=== PATIENT | male | born 1945 | race Caucasian/White ===

== ENCOUNTER 2018-07-07 07:32 | Day surgery (SDC) | payer OTHER ==
[~2018-07-07] VITALS: Ht 167.6 cm; Wt 116.1 kg
[~2018-07-07 07:32] MED LIST: ASPI-1 PO; ATEN100T PO; ATOR1TAB21 PO; BIMA01SOL OU; D 101000 PO; FISH1000 PO; GLUC4GMTAB PO; LANTINJ4 SC; MESA50SU PR; NOVOINJ3 SC; SPIR50TA4 PO; SYNT88TA2 PO; TRUL0.5I SC; VALS1TAB68 PO
[2018-07-07] MEDS ORDERED: PROPOFOL 200 MG/20 ML VIAL As Ordered ONE ×3 (09:19→09:50)
--- NOTE | 2018-07-07 10:01 | ROOR ---
Patient Name: Kalia Neville Procedure Date: 07/07/2018 9:16 AM Date of : 1945 Age: 73 Room: [facility] Gender: Male Note Status: Finalized Procedure: Colonoscopy Indications: Personal history of Crohn's disease, Positive fecal immunochemical test Providers: Eduardo Barton Jr, MD Referring MD: Mary HOLLOWAY MD Requesting Provider: Medicines: Propofol per Anesthesia Complications: No immediate complications. Procedure: Pre-Anesthesia Assessment: - Prior to the procedure, a History and Physical was performed, and patient medications and allergies were reviewed. The patient is competent. The risks and benefits of the procedure and the sedation options and risks were discussed with the patient. All questions were answered and informed consent was obtained. Patient identification and proposed procedure were verified by the physician and the nurse in the pre-procedure area and in the procedure room. Mental Status Examination: alert and oriented. Airway Examination: normal oropharyngeal airway and neck mobility. Respiratory Examination: clear to auscultation. CV Examination: normal. ASA Grade Assessment: II - A patient with mild systemic disease. After reviewing the risks and benefits, the patient was deemed in satisfactory condition to undergo the procedure. The anesthesia plan was to use moderate sedation / analgesia (conscious sedation). Immediately prior to administration of medications, the patient was re-assessed for adequacy to receive sedatives. The heart rate, respiratory rate, oxygen saturations, blood pressure, adequacy of pulmonary ventilation, and response to care were monitored throughout the procedure. The physical status of the patient was re-assessed after the procedure. The Colonoscope was introduced through the anus and advanced to the terminal ileum. The colonoscopy was performed without difficulty. The patient tolerated the procedure well. The quality of the bowel preparation was adequate. Findings: The rectum, descending colon, transverse colon, ascending colon, cecum and appendiceal orifice appeared normal. Biopsies were taken with a cold forceps for histology. The distal ileum appeared normal. Biopsies were taken with a cold forceps for histology. A medium polyp was found in the sigmoid colon. The polyp was pedunculated. The polyp was removed with a hot snare. Resection and retrieval were complete. A small polyp was found in the sigmoid colon. The polyp was semi-pedunculated. The polyp was removed with a hot snare. Resection and retrieval were complete. A medium polyp was found in the recto-sigmoid colon. The polyp was pedunculated. The polyp was removed with a hot snare. Resection and retrieval were complete. Impression: - The rectum, descending colon, transverse colon, ascending colon, cecum and appendiceal orifice are normal. Biopsied. - The examined portion of the ileum was normal. Biopsied. - One medium polyp in the sigmoid colon, removed with a hot snare. Resected and retrieved. - One small polyp in the sigmoid colon, removed with a hot snare. Resected and retrieved. - One medium polyp at the recto-sigmoid colon, removed with a hot snare. Resected and retrieved. Recommendation: - Repeat colonoscopy in 3 - 5 years for surveillance based on pathology results. Eduardo Barton MD Eduardo Barton Jr, MD 07/07/2018 10:01:32 AM Electronically signed by Eduardo Barton Jr, MD Number of Addenda: 0 Note Initiated On: 07/07/2018 9:16 AM Estimated Blood Loss: Estimated blood loss: none.
[2018-07-07 10:35] VITALS: BP 154/76
== END 2018-07-07 10:37 | disposition home or self-care (01) ==
LOC: M OPP 07:32
PROVIDERS: ATTEND Surgery
DX: K63.5 Polyp of colon (principal); R19.5 Other fecal abnormalities; Z87.19 Personal history of other diseases of the digestive system

== ENCOUNTER → 2020-05-01 | Outpatient (REF) | payer MEDICARE, OTHER | LOC: M LAB REF 19:02 | PROVIDERS: ATTEND Dermatology | DX: L82.1 Other seborrheic keratosis (principal) ==

== ENCOUNTER → 2020-05-22 | Outpatient (REF) | payer MEDICARE, OTHER ==
[~2020-05-22] MED LIST changes: +DEXT4TAB5 PO; -GLUC4GMTAB PO
== END ==
LOC: M LAB REF 18:43
PROVIDERS: ATTEND Dermatology
DX: D04.62 Carcinoma in situ of skin of left upper limb, including shoulder (principal); D23.62 Other benign neoplasm of skin of left upper limb, including shoulder

== ENCOUNTER → 2020-12-25 | Outpatient (REF) | payer OTHER ==
[~2020-12-25] MED LIST changes: -DEXT4TAB5 PO; +GLUC4GMTAB PO
== END ==
LOC: M LAB REF 18:13
PROVIDERS: ATTEND Internal Medicine
DX: E13.622 Other specified diabetes mellitus with other skin ulcer (principal)

== ENCOUNTER → 2020-12-25 | Outpatient (CLI) | payer OTHER ==
--- NOTE | 2020-12-25 15:16 | REP ---
INDICATION: DIABETIC WOUND INFECTION AFTER PUNCTURE WOUND LEFT BIG TOE COMPARISON: None. TECHNIQUE: AP, lateral, bilateral oblique views left foot. 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 Osseous structures demonstrate degenerative changes primarily involving the mid/hindfoot and 1st toe which includes subchondral sclerosis, joint space narrowing, marginal spurring and hallux valgus deformity. There is acute soft tissue swelling surrounding the 1st toe with subcutaneous emphysema and underlying ulceration. IMPRESSION: Soft tissue swelling with cellulitis and ulceration suggested. Osseous structures demonstrate degenerative changes without radiographic findings to suggest acute osteomyelitis. <Electronically signed by Bart Souza > 12/25/20 [id number]
== END ==
LOC: M WUC 14:28
PROVIDERS: ATTEND Internal Medicine
DX: S91.132A Puncture wound without foreign body of left great toe without damage to nail, initial encounter (principal); X58.XXXA Exposure to other specified factors, initial encounter; Y92.9 Unspecified place or not applicable; Y93.9 Activity, unspecified; Y99.9 Unspecified external cause status; Z89.422 Acquired absence of other left toe(s); E13.622 Other specified diabetes mellitus with other skin ulcer

== ENCOUNTER 2021-01-17 15:22 | Outpatient (CLI) | payer OTHER ==
[~2021-01-17] VITALS: Ht 170.2 cm; Wt 95.0 kg
[~2021-01-17 15:22] MED LIST changes: +ALBUTEROL 90 MCG/ACT 8GM HFA INHALER INH PRN; +ALBUTEROL SULFATE 2.5 MG/0.5 ML INH NEB SOLN INH PRN; +EPINEPHrine INJ 1 MG/ML 1ML AMP IM PRN; +NS 1,000 ML IV SCH; +diphenhydrAMINE 50MG/ML VIAL (J1200) IV PRN; +methylPREDNISolone 125MG 2ML VIAL IV PRN
[2021-01-17] MEDS ORDERED: ACETAMINOPHEN TAB 650MG DOSE (2X325MG) PO ONE (17:15)
[2021-01-17] MEDS ORDERED: diphenhydrAMINE 25MG CAP PO ONE (17:15)
[2021-01-17 17:23] VITALS: BP 173/78
[2021-01-17 17:53] VITALS: BP 177/77
[2021-01-17] MEDS ORDERED: CASIRIVIMAB (REGN10933) 600 MG, IMDEVIMAB (REGN10987) 600 MG in NS 250 ML IV ONE (18:00)
[2021-01-17 18:23] VITALS: BP 168/75
[2021-01-17 19:21] VITALS: BP 166/72
== END 2021-01-17 19:22 | disposition home or self-care (01) ==
LOC: M OPCLI4PR 15:22
PROVIDERS: ATTEND Internal Medicine
DX: U07.1 COVID-19 (principal); Z88.8 Allergy status to other drugs, medicaments and biological substances

== ENCOUNTER → 2021-02-03 | Outpatient (CLI) | payer OTHER ==
[~2021-02-03] MED LIST changes: -ALBUTEROL 90 MCG/ACT 8GM HFA INHALER INH PRN; -ALBUTEROL SULFATE 2.5 MG/0.5 ML INH NEB SOLN INH PRN; -EPINEPHrine INJ 1 MG/ML 1ML AMP IM PRN; -NS 1,000 ML IV SCH; -diphenhydrAMINE 50MG/ML VIAL (J1200) IV PRN; -methylPREDNISolone 125MG 2ML VIAL IV PRN
--- NOTE | 2021-02-03 12:26 | REP ---
INDICATION: R/O OSTEOMYELITIS COMPARISON: 12/25/2020 TECHNIQUE: AP, lateral, bilateral oblique views left foot. 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 The osseous structures are intact and stable again demonstrating degenerative changes and hallux valgus deformity without periosteal reaction or new abnormal sclerotic changes. Oblique views suggest ulceration adjacent to the 1st MTP joint. No foreign body. IMPRESSION: Stable degenerative changes and soft tissue ulceration suggested. No evidence for osteomyelitis by radiographic evaluation. <Electronically signed by Bart Souza > 02/03/21 [id number]
[2021-02-03 17:48] LABS: BASOPHILS 1 % (0-1); EOSINOPHILS 2 % (0-3); LYMPHOCYTES 8 % (16-44); METAMYELOCYTES 1 % (0-0); MONOCYTES 12 % (0-5); MYELOCYTES 1 % (0-0); NEUTROPHILS 75 % (28-66); PLATELET ESTIMATE NORMAL (NORMAL)
[2021-02-03 17:49] LABS: ANISOCYTOSIS 1+
== END ==
LOC: M WUC 11:28
PROVIDERS: ATTEND Internal Medicine
DX: D72.829 Elevated white blood cell count, unspecified (principal); S91.132A Puncture wound without foreign body of left great toe without damage to nail, initial encounter; X58.XXXA Exposure to other specified factors, initial encounter; Y92.9 Unspecified place or not applicable

== ENCOUNTER → 2021-05-29 | Outpatient (REF) | payer OTHER | LOC: M LAB REF 16:10 | PROVIDERS: ATTEND Internal Medicine | DX: I12.9 Hypertensive chronic kidney disease with stage 1 through stage 4 chronic kidney disease, or unspecified chronic kidney disease (principal) ==

== ENCOUNTER → 2021-07-15 | Outpatient (REF) | payer OTHER ==
[2021-07-15 17:40] LABS: BASO # 0.1 10^3/uL (0.0-0.2); BASO % 0.5 % (0.0-1.0); EOS # 0.3 10^3/uL (0.0-0.5); EOS % 2.7 % (0.0-3.0); HEMATOCRIT 38.3 % (42.0-52.0); HEMOGLOBIN 12.4 g/dl (13.5-17.5); LYMPH # 0.9 10^3/uL (1.5-5.0); MEAN CORPUSCULAR HEMOGLOBIN 29.7 pg (27.0-33.0); MEAN CORPUSCULAR HGB CONC 32.4 g/dl (32.0-36.5); MEAN CORPUSCULAR VOLUME 91.8 fl (80.0-96.0); MONO # 0.6 10^3/uL (0.0-0.8); MONO % 6.2 % (2.0-8.0); NEUTROPHILS # 7.3 10^3/uL (1.5-8.5); NEUTROPHILS % 79.1 % (36.0-66.0); PLATELET COUNT, AUTOMATED 122 10^3/uL (150-450); RED BLOOD COUNT 4.17 10^6/uL (4.30-6.10); WHITE BLOOD COUNT 9.3 10^3/uL (4.0-10.0)
[2021-07-15 18:13] LABS: ALBUMIN 3.2 GM/DL (3.2-5.2); C REACTIVE PROTEIN QUANTITATIV 0.3 MG/DL (0.00-0.30); CALCIUM LEVEL 9.1 MG/DL (8.8-10.2); CREATININE FOR GFR 1.51 MG/DL (0.70-1.30); GLOMERULAR FILTRATION RATE 47.8 (>42); POTASSIUM SERUM 5.2 MEQ/L (3.5-5.1); PREALBUMIN 21.7 MG/DL (20.0-40.0); TOTAL PROTEIN 6.7 GM/DL (6.4-8.2)
[2021-07-15 18:21] LABS: ERYTHROCYTE SEDIMENTATION RATE 2 mm/hr (0-20)
== END ==
LOC: M LAB REF 17:05
PROVIDERS: ATTEND Surgery
DX: L97.525 Non-pressure chronic ulcer of other part of left foot with muscle involvement without evidence of necrosis (principal)

== ENCOUNTER → 2021-07-22 | Outpatient (REF) | payer OTHER ==
[2021-07-22 14:05] LABS: BASO # 0.1 10^3/uL (0.0-0.2); BASO % 0.6 % (0.0-1.0); EOS # 0.2 10^3/uL (0.0-0.5); EOS % 2.4 % (0.0-3.0); HEMATOCRIT 36.8 % (42.0-52.0); HEMOGLOBIN 12.1 g/dl (13.5-17.5); LYMPH # 0.8 10^3/uL (1.5-5.0); LYMPH % 8.7 % (24.0-44.0); MEAN CORPUSCULAR HGB CONC 32.9 g/dl (32.0-36.5); MEAN CORPUSCULAR VOLUME 91.3 fl (80.0-96.0); MONO # 0.4 10^3/uL (0.0-0.8); MONO % 4.6 % (2.0-8.0); NEUTROPHILS # 7.1 10^3/uL (1.5-8.5); NEUTROPHILS % 82.4 % (36.0-66.0); PLATELET COUNT, AUTOMATED 108 10^3/uL (150-450); RED BLOOD COUNT 4.03 10^6/uL (4.30-6.10); WHITE BLOOD COUNT 8.6 10^3/uL (4.0-10.0)
[2021-07-22 14:32] LABS: ERYTHROCYTE SEDIMENTATION RATE 36 mm/hr (0-20)
[2021-07-22 14:39] LABS: ALBUMIN 3.1 GM/DL (3.2-5.2); BILIRUBIN,TOTAL 0.7 MG/DL (0.2-1.0); C REACTIVE PROTEIN QUANTITATIV 0.3 MG/DL (0.00-0.30); CALCIUM LEVEL 9.2 MG/DL (8.8-10.2); CREATININE FOR GFR 1.61 MG/DL (0.70-1.30); GLOMERULAR FILTRATION RATE 44.4 (>42); POTASSIUM SERUM 4.8 MEQ/L (3.5-5.1); PREALBUMIN 17.6 MG/DL (20.0-40.0); TOTAL PROTEIN 6.7 GM/DL (6.4-8.2)
== END ==
LOC: M LAB REF 13:21
PROVIDERS: ATTEND Surgery
DX: L97.525 Non-pressure chronic ulcer of other part of left foot with muscle involvement without evidence of necrosis (principal); E11.621 Type 2 diabetes mellitus with foot ulcer; E11.59 Type 2 diabetes mellitus with other circulatory complications; I73.9 Peripheral vascular disease, unspecified; H25.9 Unspecified age-related cataract; H91.90 Unspecified hearing loss, unspecified ear; I10 Essential (primary) hypertension; K50.919 Crohn's disease, unspecified, with unspecified complications; E66.01 Morbid (severe) obesity due to excess calories

== ENCOUNTER → 2021-08-13 | Outpatient (REF) | payer MEDICARE, OTHER ==
[~2021-08-13] MED LIST changes: +AMLO10TA PO; +BUPR150T12 PO; +FLOM0.4C39 PO; +INSUH10VL SQ; +LEVO125T4 PO; +LISI40TA4 PO; +PENT500C PO; +SEMA1PEN2 SQ; +VITA100093 PO
[2021-08-13 11:56] LABS: BASO # 0.1 10^3/uL (0.0-0.2); BASO % 0.5 % (0.0-1.0); EOS # 0.4 10^3/uL (0.0-0.5); EOS % 3.4 % (0.0-3.0); HEMATOCRIT 37.4 % (42.0-52.0); HEMOGLOBIN 12.2 g/dl (13.5-17.5); LYMPH # 0.8 10^3/uL (1.5-5.0); LYMPH % 7.4 % (24.0-44.0); MEAN CORPUSCULAR HEMOGLOBIN 30.7 pg (27.0-33.0); MEAN CORPUSCULAR HGB CONC 32.6 g/dl (32.0-36.5); MEAN CORPUSCULAR VOLUME 94.2 fl (80.0-96.0); MONO # 0.7 10^3/uL (0.0-0.8); MONO % 6.1 % (2.0-8.0); NEUTROPHILS # 8.9 10^3/uL (1.5-8.5); NEUTROPHILS % 80.7 % (36.0-66.0); PLATELET COUNT, AUTOMATED 134 10^3/uL (150-450); RED BLOOD COUNT 3.97 10^6/uL (4.30-6.10)
[2021-08-13 12:31] LABS: ALBUMIN 3.2 GM/DL (3.2-5.2); BILIRUBIN,TOTAL 1.2 MG/DL (0.2-1.0); C REACTIVE PROTEIN QUANTITATIV 0.3 MG/DL (0.00-0.30); CALCIUM LEVEL 8.7 MG/DL (8.8-10.2); CREATININE FOR GFR 1.92 MG/DL (0.70-1.30); ERYTHROCYTE SEDIMENTATION RATE 34 mm/hr (0-20); GLOMERULAR FILTRATION RATE 36.2 (>42); POTASSIUM SERUM 5.7 MEQ/L (3.5-5.1); PREALBUMIN 23.5 MG/DL (20.0-40.0)
== END ==
LOC: M LAB REF 11:23
DX: L97.525 Non-pressure chronic ulcer of other part of left foot with muscle involvement without evidence of necrosis (principal)

== ENCOUNTER → 2021-08-15 | Outpatient (CLI) | payer OTHER ==
[~2021-08-15] MED LIST changes: -BUPR150T12 PO; -FLOM0.4C39 PO; -INSUH10VL SQ; -LEVO125T4 PO; -SEMA1PEN2 SQ; -VITA100093 PO
== END ==
LOC: M ONCR 10:31
PROVIDERS: ATTEND General Practice
DX: C44.311 Basal cell carcinoma of skin of nose (principal); Z79.4 Long term (current) use of insulin; Z79.899 Other long term (current) drug therapy; Z87.891 Personal history of nicotine dependence; Z91.013 Allergy to seafood; Z88.8 Allergy status to other drugs, medicaments and biological substances; Z96.41 Presence of insulin pump (external) (internal)

== ENCOUNTER 2021-09-09 09:16 | Outpatient (RCR) | payer MEDICARE, OTHER | END 2021-09-11 | LOC: M ONCR 09:16 | PROVIDERS: ATTEND General Practice | DX: C44.311 Basal cell carcinoma of skin of nose (principal); I10 Essential (primary) hypertension; E03.9 Hypothyroidism, unspecified; E11.9 Type 2 diabetes mellitus without complications; Z79.890 Hormone replacement therapy; Z79.899 Other long term (current) drug therapy; Z79.4 Long term (current) use of insulin; Z88.8 Allergy status to other drugs, medicaments and biological substances; Z91.013 Allergy to seafood; Z98.890 Other specified postprocedural states ==

== ENCOUNTER 2021-09-12 11:51 | Outpatient (RCR) | payer OTHER ==
[2021-09-18] MEDS ORDERED: BUPR150T12 PO (20:23)
[2021-09-18] MEDS ORDERED: LEVO125T4 PO (20:23)
[2021-09-18] MEDS ORDERED: SEMA1PEN2 SQ (20:23)
[2021-09-18] MEDS ORDERED: INSUH10VL SQ (20:23)
[2021-09-18] MEDS ORDERED: VITA100093 PO (20:23)
[2021-09-22] MEDS ORDERED: FLOM0.4C39 PO (10:42)
== END 2021-10-12 ==
LOC: M ONCR 11:51
PROVIDERS: ATTEND General Practice
DX: C44.311 Basal cell carcinoma of skin of nose (principal)

== ENCOUNTER 2021-09-18 15:12 | Inpatient (IN) | payer OTHER ==
[~2021-09-18] VITALS: Ht 170.2 cm; Wt 108.5 kg
[2021-09-18 17:51] LABS: VENOUS BASE EXCESS -14.1 (-2.0-2.0); VENOUS HCO3 13.9 MEQ/L (23.0-27.0); VENOUS PARTIAL PRESSURE O2 40.8 mmHg (30.0-50.0); VENOUS PH 7.159 UNITS (7.330-7.430); VENOUS STANDARD HCO3 13.3 MEQ/L; VENOUS TOTAL CO2 15.1 MEQ/L (24.0-28.0)
[2021-09-18 17:55] LABS: BASO # 0.1 10^3/uL (0.0-0.2); BASO % 0.3 % (0.0-1.0); EOS # 0.3 10^3/uL (0.0-0.5); EOS % 1.3 % (0.0-3.0); HEMATOCRIT 40.4 % (42.0-52.0); HEMOGLOBIN 13.1 g/dl (13.5-17.5); LYMPH # 1.3 10^3/uL (1.5-5.0); LYMPH % 6.6 % (24.0-44.0); MEAN CORPUSCULAR HEMOGLOBIN 31.6 pg (27.0-33.0); MEAN CORPUSCULAR HGB CONC 32.4 g/dl (32.0-36.5); MEAN CORPUSCULAR VOLUME 97.3 fl (80.0-96.0); MONO # 0.9 10^3/uL (0.0-0.8); MONO % 4.8 % (2.0-8.0); NEUTROPHILS # 16.9 10^3/uL (1.5-8.5); NEUTROPHILS % 86.1 % (36.0-66.0); PLATELET COUNT, AUTOMATED 193 10^3/uL (150-450); RED BLOOD COUNT 4.15 10^6/uL (4.30-6.10); WHITE BLOOD COUNT 19.6 10^3/uL (4.0-10.0)
[2021-09-18 18:30] LABS: CALCIUM LEVEL 8.8 MG/DL (8.8-10.2); CREATININE FOR GFR 3.95 MG/DL (0.70-1.30); GLOMERULAR FILTRATION RATE 15.8 (>42)
[2021-09-18] MEDS ORDERED: PATIROMER SORBITEX CALCIUM 8.4 GM POWDER PACKET (VELTASSA) PO ONE (18:30)
[2021-09-18] MEDS ORDERED: NS 1,000 ML IV ONE (18:30)
[2021-09-18 18:31] LABS: POTASSIUM SERUM 7.7 MEQ/L (3.5-5.1)
[2021-09-18 18:35] LABS: RSV AMPLIFICATION NEGATIVE (NEGATIVE)
[2021-09-18] MEDS ORDERED: ONDANSETRON 4MG 2ML VIAL IV ONE (19:00)
[2021-09-18] MEDS ORDERED: SODIUM BICARBONATE 150 MEQ in NS 1,000 ML IV SCH ×2 (19:15→21:00)
[2021-09-18] MEDS ORDERED: CALCIUM GLUCONATE 1,000 MG in D5W MINI-BAG PLUS 100 ML IV ONE (19:15)
[2021-09-18] MEDS ORDERED: SEMA1PEN2 SQ (20:23)
[2021-09-18] MEDS ORDERED: BUPR150T12 PO (20:23)
[2021-09-18] MEDS ORDERED: LEVO125T4 PO (20:23)
[2021-09-18] MEDS ORDERED: INSUH10VL SQ (20:23)
[2021-09-18] MEDS ORDERED: VITA100093 PO (20:23)
[2021-09-18] MEDS ORDERED: HOME MED LIST COMPLETE! XX SCH (20:45)
[2021-09-18] MEDS ORDERED: NS 1,000 ML IV SCH (20:45)
[2021-09-18] MEDS ORDERED: SOD POLYSTYRENE SULFONATE SUSP 15GM 60ML UD PO SCH (20:45)
[2021-09-18 21:57] LABS: ALBUMIN 2.9 GM/DL (3.2-5.2); BILIRUBIN,DIRECT 0.3 MG/DL (0.0-0.2); BILIRUBIN,TOTAL 0.9 MG/DL (0.2-1.0); CREATININE FOR GFR 3.54 MG/DL (0.70-1.30); GLOMERULAR FILTRATION RATE 17.9 (>42); PHOSPHORUS LEVEL 4.1 MG/DL (2.5-4.9); POTASSIUM SERUM 6.2 MEQ/L (3.5-5.1); THYROID STIMULATING HORMONE 0.171 uIU/ML (0.358-3.740)
[2021-09-18] MEDS: HEPARIN SOD (PORCINE) 5000UNITS/ML 1ML VIAL/SYRINGE SC SCH (23:05)
[2021-09-18 23:22] LABS: APPEARANCE, URINE TURBID (CLEAR); BACTERIA, URINE AUTO NEGATIVE (NEGATIVE); BILIRUBIN, URINE AUTO NEGATIVE (NEGATIVE); BLOOD, URINE BLOOD 3+ (NEGATIVE); COLOR, URINE AMBER (YELLOW); GLUCOSE, URINE (UA) AUTO NEGATIVE (NEGATIVE); KETONE, URINE AUTO NEGATIVE (NEGATIVE); LEUKOCYTE ESTERASE, URINE AUTO 3+ (NEGATIVE); MUCUS, URINE SMALL (NEGATIVE); NITRITE, URINE AUTO NEGATIVE (NEGATIVE); PROTEIN, URINE AUTO NEGATIVE (NEGATIVE); RBC, URINE AUTO 2 /HPF (0-3); SQUAMOUS EPITHELIAL CELL UR AU 0 /HPF (0-6); UROBILINOGEN, URINE AUTO 0.2 mg/dL (0.0-2.0); WBC, URINE AUTO 0 /HPF (0-3)
[2021-09-19] MEDS ORDERED: GLUCOSE 4GM CHEW TABLET PO PRN (00:05)
[2021-09-19] MEDS ORDERED: LEVEMIR (INSULIN DETEMIR) 1 UNITS/0.01ML SC SCH (00:05)
[2021-09-19] MEDS ORDERED: DEXTROSE 50% 50 ML SYRINGE IV PRN (00:05)
[2021-09-19] MEDS ORDERED: GLUCAGON INJ 1MG VIAL SC PRN (00:05)
[2021-09-19] MEDS: LEVOTHYROXINE 100MCG TABLET (0.1MG) PO SCH (06:37)
[2021-09-19] MEDS: INSULIN LISPRO (NovoLOG) PER UNIT SC SCH ×4 (07:43→20:47)
[2021-09-19 08:00] LABS: BASO % 0.3 % (0.0-1.0); EOS # 0.2 10^3/uL (0.0-0.5); EOS % 2.3 % (0.0-3.0); HEMOGLOBIN 11.5 g/dl (13.5-17.5); LYMPH # 0.8 10^3/uL (1.5-5.0); LYMPH % 9.5 % (24.0-44.0); MEAN CORPUSCULAR HEMOGLOBIN 30.9 pg (27.0-33.0); MEAN CORPUSCULAR HGB CONC 31.9 g/dl (32.0-36.5); MEAN CORPUSCULAR VOLUME 96.8 fl (80.0-96.0); MONO # 0.5 10^3/uL (0.0-0.8); MONO % 5.3 % (2.0-8.0); NEUTROPHILS # 7.3 10^3/uL (1.5-8.5); NEUTROPHILS % 82.3 % (36.0-66.0); PLATELET COUNT, AUTOMATED 131 10^3/uL (150-450); RED BLOOD COUNT 3.72 10^6/uL (4.30-6.10); WHITE BLOOD COUNT 8.9 10^3/uL (4.0-10.0)
[2021-09-19] MEDS: SODIUM BICARBONATE 150 MEQ in D5W 1,000 ML IV SCH ×4 (08:19→21:39)
[2021-09-19 08:20] VITALS: BP 122/56
[2021-09-19] MEDS: ATORVASTATIN 20 MG TAB PO SCH (08:20)
[2021-09-19] MEDS: buPROPion **XL** TABLET 150MG (WELLBUTRIN XL) PO SCH (08:20)
[2021-09-19] MEDS: HEPARIN SOD (PORCINE) 5000UNITS/ML 1ML VIAL/SYRINGE SC SCH ×2 (08:20→20:47)
[2021-09-19] MEDS: LEVEMIR (INSULIN DETEMIR) 1 UNITS/0.01ML SC SCH ×2 (08:21→20:47)
[2021-09-19 08:26] LABS: CALCIUM LEVEL 8.6 MG/DL (8.8-10.2); CREATININE FOR GFR 3.17 MG/DL (0.70-1.30); FREE T4 1.32 NG/DL (0.76-1.46); GLOMERULAR FILTRATION RATE 20.3 (>42); PHOSPHORUS LEVEL 4.1 MG/DL (2.5-4.9); POTASSIUM SERUM 7.9 MEQ/L (3.5-5.1)
[2021-09-19 08:28] LABS: ALBUMIN 3.1 GM/DL (3.2-5.2); BILIRUBIN,TOTAL 1.3 MG/DL (0.2-1.0); CALCIUM LEVEL 8.8 MG/DL (8.8-10.2); CREATININE FOR GFR 3.23 MG/DL (0.70-1.30); GLOMERULAR FILTRATION RATE 19.9 (>42); POTASSIUM SERUM 7.7 MEQ/L (3.5-5.1); TOTAL PROTEIN 6.9 GM/DL (6.4-8.2)
[2021-09-19] MEDS ORDERED: LEVOTHYROXINE 125MCG TABLET (0.125MG) PO SCH (09:00)
[2021-09-19] MEDS ORDERED: lisinopriL 40MG TAB PO SCH (09:00)
[2021-09-19] MEDS ORDERED: CALCIUM GLUCONATE 1,000 MG in D5W MINI-BAG PLUS 100 ML IV ONE ×2 (09:00→14:00)
[2021-09-19] MEDS ORDERED: ALBUTEROL SULFATE 2.5 MG/0.5 ML INH NEB SOLN NEB SCH (09:00)
[2021-09-19] MEDS ORDERED: MESALAMINE 250 MG CR CAP PO SCH (09:00)
[2021-09-19] MEDS ORDERED: atenoloL 50 MG TAB PO SCH (09:00)
[2021-09-19 12:51] LABS: CALCIUM LEVEL 8.2 MG/DL (8.8-10.2); CREATININE FOR GFR 3.1 MG/DL (0.70-1.30); GLOMERULAR FILTRATION RATE 20.8 (>42)
[2021-09-19] MEDS ORDERED: HumuLIN R (REGULAR) INSULIN (NovoLIN R) **100U/ML** PER UNIT IV STA (14:00)
[2021-09-19 15:01] VITALS: BP 110/58
[2021-09-19 16:51] LABS: CALCIUM LEVEL 8.5 MG/DL (8.8-10.2); CREATININE FOR GFR 2.92 MG/DL (0.70-1.30); GLOMERULAR FILTRATION RATE 22.3 (>42); POTASSIUM SERUM 5.2 MEQ/L (3.5-5.1)
[2021-09-19 20:00] VITALS: BP 116/55
[2021-09-19 20:46] LABS: CALCIUM LEVEL 8.5 MG/DL (8.8-10.2); CREATININE FOR GFR 2.88 MG/DL (0.70-1.30); GLOMERULAR FILTRATION RATE 22.7 (>42); POTASSIUM SERUM 5.6 MEQ/L (3.5-5.1)
[2021-09-19] MEDS: TAMSULOSIN 0.4 MG CAP PO SCH (20:46)
[2021-09-20] VITALS: BP 98/47
[2021-09-20 00:35] LABS: CREATININE FOR GFR 2.71 MG/DL (0.70-1.30); GLOMERULAR FILTRATION RATE 24.3 (>42); POTASSIUM SERUM 5.1 MEQ/L (3.5-5.1)
[2021-09-20 04:00] VITALS: BP 108/57
[2021-09-20] MEDS: LEVOTHYROXINE 100MCG TABLET (0.1MG) PO SCH (05:25)
[2021-09-20] MEDS: SODIUM BICARBONATE 150 MEQ in D5W 1,000 ML IV SCH (05:25)
[2021-09-20 06:12] LABS: BASO % 0.5 % (0.0-1.0); EOS # 0.2 10^3/uL (0.0-0.5); EOS % 4.8 % (0.0-3.0); HEMATOCRIT 28.6 % (42.0-52.0); HEMOGLOBIN 9.9 g/dl (13.5-17.5); LYMPH # 0.5 10^3/uL (1.5-5.0); LYMPH % 12.5 % (24.0-44.0); MEAN CORPUSCULAR HEMOGLOBIN 31.7 pg (27.0-33.0); MEAN CORPUSCULAR HGB CONC 34.6 g/dl (32.0-36.5); MEAN CORPUSCULAR VOLUME 91.7 fl (80.0-96.0); MONO # 0.2 10^3/uL (0.0-0.8); MONO % 5.9 % (2.0-8.0); NEUTROPHILS % 75.8 % (36.0-66.0); PLATELET COUNT, AUTOMATED 102 10^3/uL (150-450); RED BLOOD COUNT 3.12 10^6/uL (4.30-6.10); WHITE BLOOD COUNT 3.9 10^3/uL (4.0-10.0)
[2021-09-20 06:26] LABS: CALCIUM LEVEL 8.1 MG/DL (8.8-10.2); CREATININE FOR GFR 2.59 MG/DL (0.70-1.30); GLOMERULAR FILTRATION RATE 25.7 (>42); POTASSIUM SERUM 4.6 MEQ/L (3.5-5.1)
[2021-09-20 06:40] LABS: ALBUMIN 2.4 GM/DL (3.2-5.2); CREATININE FOR GFR 2.53 MG/DL (0.70-1.30); GLOMERULAR FILTRATION RATE 26.4 (>42); PHOSPHORUS LEVEL 3.6 MG/DL (2.5-4.9); POTASSIUM SERUM 4.8 MEQ/L (3.5-5.1)
[2021-09-20 08:00] VITALS: BP 100/56
[2021-09-20 08:16] LABS: CALCIUM LEVEL 8.1 MG/DL (8.8-10.2); CREATININE FOR GFR 2.45 MG/DL (0.70-1.30); GLOMERULAR FILTRATION RATE 27.4 (>42); POTASSIUM SERUM 4.7 MEQ/L (3.5-5.1)
[2021-09-20] MEDS: HEPARIN SOD (PORCINE) 5000UNITS/ML 1ML VIAL/SYRINGE SC SCH ×2 (08:16→20:33)
[2021-09-20] MEDS: buPROPion **XL** TABLET 150MG (WELLBUTRIN XL) PO SCH (08:16)
[2021-09-20] MEDS: ATORVASTATIN 20 MG TAB PO SCH (08:16)
[2021-09-20] MEDS: LEVEMIR (INSULIN DETEMIR) 1 UNITS/0.01ML SC SCH ×2 (08:17→20:33)
[2021-09-20] MEDS: INSULIN LISPRO (NovoLOG) PER UNIT SC SCH ×4 (08:17→20:08)
[2021-09-20 12:10] VITALS: BP 109/54
[2021-09-20 15:50] VITALS: BP 122/58
[2021-09-20 20:00] VITALS: BP 115/53
[2021-09-20] MEDS: TAMSULOSIN 0.4 MG CAP PO SCH (20:33)
[2021-09-20 20:36] LABS: CALCIUM LEVEL 8.1 MG/DL (8.8-10.2); CREATININE FOR GFR 2.44 MG/DL (0.70-1.30); GLOMERULAR FILTRATION RATE 27.5 (>42); POTASSIUM SERUM 5.7 MEQ/L (3.5-5.1)
[2021-09-21] VITALS: BP 118/55
[2021-09-21 04:00] VITALS: BP 122/59
[2021-09-21] MEDS: LEVOTHYROXINE 100MCG TABLET (0.1MG) PO SCH (05:35)
[2021-09-21 06:45] LABS: BASO % 0.4 % (0.0-1.0); EOS # 0.2 10^3/uL (0.0-0.5); EOS % 4.6 % (0.0-3.0); HEMATOCRIT 30.4 % (42.0-52.0); HEMOGLOBIN 10.2 g/dl (13.5-17.5); LYMPH # 0.7 10^3/uL (1.5-5.0); LYMPH % 12.8 % (24.0-44.0); MEAN CORPUSCULAR HGB CONC 33.6 g/dl (32.0-36.5); MEAN CORPUSCULAR VOLUME 95.3 fl (80.0-96.0); MONO # 0.3 10^3/uL (0.0-0.8); MONO % 6.1 % (2.0-8.0); NEUTROPHILS % 75.5 % (36.0-66.0); PLATELET COUNT, AUTOMATED 126 10^3/uL (150-450); RED BLOOD COUNT 3.19 10^6/uL (4.30-6.10); WHITE BLOOD COUNT 5.2 10^3/uL (4.0-10.0)
[2021-09-21 07:12] LABS: CALCIUM LEVEL 8.4 MG/DL (8.8-10.2); CREATININE FOR GFR 2.17 MG/DL (0.70-1.30); GLOMERULAR FILTRATION RATE 31.5 (>42); POTASSIUM SERUM 4.2 MEQ/L (3.5-5.1)
[2021-09-21 07:39] VITALS: BP 122/57
[2021-09-21] MEDS: ATORVASTATIN 20 MG TAB PO SCH (07:52)
[2021-09-21] MEDS: buPROPion **XL** TABLET 150MG (WELLBUTRIN XL) PO SCH (07:53)
[2021-09-21] MEDS: INSULIN LISPRO (NovoLOG) PER UNIT SC SCH ×4 (07:53→20:07)
[2021-09-21] MEDS: LEVEMIR (INSULIN DETEMIR) 1 UNITS/0.01ML SC SCH ×2 (07:53→20:31)
[2021-09-21] MEDS: HEPARIN SOD (PORCINE) 5000UNITS/ML 1ML VIAL/SYRINGE SC SCH ×2 (07:54→20:31)
[2021-09-21 16:17] VITALS: BP 145/70
[2021-09-21 20:00] VITALS: BP 134/64
[2021-09-21] MEDS: TAMSULOSIN 0.4 MG CAP PO SCH (20:31)
[2021-09-22 04:00] VITALS: BP 117/59
[2021-09-22] MEDS: LEVOTHYROXINE 100MCG TABLET (0.1MG) PO SCH (05:16)
[2021-09-22 06:01] LABS: BASO % 0.4 % (0.0-1.0); EOS # 0.4 10^3/uL (0.0-0.5); LYMPH # 1.4 10^3/uL (1.5-5.0); MEAN CORPUSCULAR HEMOGLOBIN 31.8 pg (27.0-33.0); MEAN CORPUSCULAR HGB CONC 33.3 g/dl (32.0-36.5); MEAN CORPUSCULAR VOLUME 95.4 fl (80.0-96.0); MONO # 0.5 10^3/uL (0.0-0.8); MONO % 5.4 % (2.0-8.0); NEUTROPHILS # 6.7 10^3/uL (1.5-8.5); NEUTROPHILS % 74.3 % (36.0-66.0); PLATELET COUNT, AUTOMATED 157 10^3/uL (150-450); RED BLOOD COUNT 3.46 10^6/uL (4.30-6.10)
[2021-09-22 07:41] LABS: CALCIUM LEVEL 8.1 MG/DL (8.8-10.2); CREATININE FOR GFR 2.06 MG/DL (0.70-1.30); GLOMERULAR FILTRATION RATE 33.4 (>42); POTASSIUM SERUM 4.1 MEQ/L (3.5-5.1)
[2021-09-22] MEDS: ATORVASTATIN 20 MG TAB PO SCH (08:35)
[2021-09-22] MEDS: buPROPion **XL** TABLET 150MG (WELLBUTRIN XL) PO SCH (08:35)
[2021-09-22] MEDS: INSULIN LISPRO (NovoLOG) PER UNIT SC SCH (08:35)
[2021-09-22] MEDS: LEVEMIR (INSULIN DETEMIR) 1 UNITS/0.01ML SC SCH (08:35)
[2021-09-22] MEDS: HEPARIN SOD (PORCINE) 5000UNITS/ML 1ML VIAL/SYRINGE SC SCH (08:36)
[2021-09-22] MEDS ORDERED: FLOM0.4C39 PO (10:42)
== END 2021-09-22 12:28 | disposition home or self-care (01) | DRG 682 ==
LOC: M ED 15:12 → M ED INP 20:43 → ENRESERV 09-19 11:53 → M PCU 09-19 14:50
PROVIDERS: ADMIT Internal Medicine; ATTEND Internal Medicine Nephrology
DX: N17.9 Acute kidney failure, unspecified (principal); G93.41 Metabolic encephalopathy; E87.2 Acidosis; K51.90 Ulcerative colitis, unspecified, without complications; E87.0 Hyperosmolality and hypernatremia; E87.5 Hyperkalemia; N18.30 Chronic kidney disease, stage 3 unspecified; E11.40 Type 2 diabetes mellitus with diabetic neuropathy, unspecified; E66.01 Morbid (severe) obesity due to excess calories; I12.9 Hypertensive chronic kidney disease with stage 1 through stage 4 chronic kidney disease, or unspecified chronic kidney disease; E78.5 Hyperlipidemia, unspecified; H40.9 Unspecified glaucoma; E03.9 Hypothyroidism, unspecified; Z85.828 Personal history of other malignant neoplasm of skin; F32.A Depression, unspecified; Z89.422 Acquired absence of other left toe(s); Z79.899 Other long term (current) drug therapy; Z79.4 Long term (current) use of insulin; Z91.013 Allergy to seafood; Z88.8 Allergy status to other drugs, medicaments and biological substances; R31.9 Hematuria, unspecified; Z87.891 Personal history of nicotine dependence; D64.9 Anemia, unspecified; R33.9 Retention of urine, unspecified; E83.51 Hypocalcemia; E11.621 Type 2 diabetes mellitus with foot ulcer; L97.529 Non-pressure chronic ulcer of other part of left foot with unspecified severity

== ENCOUNTER → 2021-11-12 | Outpatient (RCR) | payer OTHER, MEDICARE ==
[~2021-11-12] MED LIST changes: +BUPR150T12 PO; +FLOM0.4C39 PO; +INSUH10VL SQ; +LEVO125T4 PO; +SEMA1PEN2 SQ; +VITA100093 PO
== END ==
LOC: M ONCR 11-11 14:53
PROVIDERS: ATTEND General Practice
DX: C44.311 Basal cell carcinoma of skin of nose (principal)

== ENCOUNTER → 2021-12-12 | Outpatient (RCR) | payer OTHER, MEDICARE | LOC: M ONCR 11-13 14:50 | PROVIDERS: ATTEND General Practice | DX: C44.311 Basal cell carcinoma of skin of nose (principal) ==

== ENCOUNTER 2021-12-26 14:25 | Outpatient (RCR) | payer OTHER, MEDICARE | END 2022-01-12 | LOC: M ONCR 14:25 | PROVIDERS: ATTEND General Practice | DX: C44.311 Basal cell carcinoma of skin of nose (principal) ==

== ENCOUNTER → 2022-03-25 | Outpatient (REF) | payer MEDICARE, OTHER ==
[2022-03-25 18:46] LABS: CREATININE, URINE 66.3 MG/DL
[2022-03-25 19:01] LABS: MAU/CREAT RATIO 1625.9 MCG/MG (0.0-30.0)
== END ==
LOC: M LAB REF 17:01
PROVIDERS: ATTEND Internal Medicine Nephrology
DX: N18.31 Chronic kidney disease, stage 3a (principal)

== ENCOUNTER → 2022-06-03 | Outpatient (REF) | payer MEDICARE ==
[2022-06-03 19:19] LABS: CHOLESTEROL RISK RATIO 2.54 (<5); HDL CHOLESTEROL 41.6 MG/DL (>40); LDL CHOLESTEROL 20.2 MG/DL (<100); NON-HDL-C 64.4 MG/DL
[2022-06-03 19:22] LABS: THYROID STIMULATING HORMONE 1.379 uIU/ML (0.55-4.78)
[2022-06-03 19:59] LABS: HEMOGLOBIN A1c 8.3 % (4.0-6.0)
== END ==
LOC: M LAB REF 17:58
PROVIDERS: ATTEND Internal Medicine
DX: E11.621 Type 2 diabetes mellitus with foot ulcer (principal); E03.9 Hypothyroidism, unspecified; E78.00 Pure hypercholesterolemia, unspecified

== ENCOUNTER → 2022-09-07 | Outpatient (REF) | payer OTHER ==
[2022-09-07 20:25] LABS: VITAMIN B12 LEVEL 367 PG/ML (211-911)
[2022-09-07 20:46] LABS: HIV 1&2 SCREEN NEGATIVE (NEGATIVE)
== END ==
LOC: M LAB REF 16:39
PROVIDERS: ATTEND Internal Medicine
DX: F03.90 Unspecified dementia, unspecified severity, without behavioral disturbance, psychotic disturbance, mood disturbance, and anxiety (principal)

== ENCOUNTER → 2022-09-23 | Outpatient (CLI) | payer OTHER, MEDICARE | LOC: M RAD 12:24 | PROVIDERS: ATTEND Internal Medicine | DX: G31.84 Mild cognitive impairment of uncertain or unknown etiology (principal) ==

== ENCOUNTER 2022-12-29 06:31 | Day surgery (SDC) | payer OTHER, MEDICARE ==
[~2022-12-29] VITALS: Ht 170.2 cm; Wt 111.6 kg
[~2022-12-29 06:31] MED LIST changes: +AMLO1TAB24 PO; +CYCLOPENTOLATE 1% OPHTH SOLN 2ML BTL OD SCH; +D-101000 PO; +HYDR12.55 PO; +INSULANT SC; +JARD1TAB3 PO; +METO1TAB7 PO; +OFLOXACIN 0.3 % (OCUFLOX) OPTH SOL 5ML OD SCH; +PHENYLEPHRINE 2.5% OPHTH SOL 2ML OD SCH; +PROPARACAINE 0.5% OPHTH SOL 15ML OD ONE; +TROPICAMIDE 1% OPHTH SOLN 15ML OD SCH; +XELP0.00 OU
[2022-12-29] MEDS ORDERED: LIDOCAINE 1% SDV 5ML VIAL As Ordered ONE (06:43)
[2022-12-29] MEDS ORDERED: CEFUROXIME 1MG/0.1ML INTRACAMERAL INJ As Ordered ONE (06:43)
[2022-12-29] MEDS ORDERED: BSS IRR 500ML/OMIDRIA 4ML IRR BAG (OR ONLY) As Ordered ONE (06:43)
[2022-12-29] MEDS ORDERED: PROVISC 10 MG/ML 0.85ML SYRINGE As Ordered ONE (06:44)
[2022-12-29] MEDS ORDERED: MIDAZOLAM INJ 2MG/2ML VIAL As Ordered ONE (07:07)
[2022-12-29] MEDS ORDERED: fentaNYL 100 MCG/2 ML INJECTION As Ordered ONE (07:07)
[2022-12-29] MEDS ORDERED: TRYPAN BLUE 0.06 % 2.25 ML OPHTH SYR (VISIONBLUE) As Ordered ONE (08:40)
[2022-12-29 09:00] VITALS: BP 120/60; TEMP 97.6; O2SAT 98
== END 2022-12-29 09:19 | disposition home or self-care (01) ==
LOC: M SDC 06:31
PROVIDERS: ATTEND Ophthalmology
DX: E11.36 Type 2 diabetes mellitus with diabetic cataract (principal); H26.9 Unspecified cataract; H40.10X0 Unspecified open-angle glaucoma, stage unspecified; E11.65 Type 2 diabetes mellitus with hyperglycemia; E11.22 Type 2 diabetes mellitus with diabetic chronic kidney disease; I12.9 Hypertensive chronic kidney disease with stage 1 through stage 4 chronic kidney disease, or unspecified chronic kidney disease; N18.32 Chronic kidney disease, stage 3b; E11.21 Type 2 diabetes mellitus with diabetic nephropathy; K50.90 Crohn's disease, unspecified, without complications; F01.50 Vascular dementia, unspecified severity, without behavioral disturbance, psychotic disturbance, mood disturbance, and anxiety; I73.9 Peripheral vascular disease, unspecified; E78.00 Pure hypercholesterolemia, unspecified; Z79.84 Long term (current) use of oral hypoglycemic drugs; Z79.899 Other long term (current) drug therapy; Z79.1 Long term (current) use of non-steroidal anti-inflammatories (NSAID); E66.01 Morbid (severe) obesity due to excess calories; Z79.890 Hormone replacement therapy; Z87.891 Personal history of nicotine dependence; Z88.8 Allergy status to other drugs, medicaments and biological substances
CPT/HCPCS: 65820; 66984; A4649; C1889; J0697; J1097; J2250; J3010; V2632

== ENCOUNTER 2023-06-17 06:48 | Day surgery (SDC) | payer MEDICARE, OTHER ==
[~2023-06-17] VITALS: Ht 170.2 cm; Wt 107.4 kg
[~2023-06-17 06:48] MED LIST changes: -CYCLOPENTOLATE 1% OPHTH SOLN 2ML BTL OD SCH; +METO1TAB32 PO; -OFLOXACIN 0.3 % (OCUFLOX) OPTH SOL 5ML OD SCH; -PHENYLEPHRINE 2.5% OPHTH SOL 2ML OD SCH; -PROPARACAINE 0.5% OPHTH SOL 15ML OD ONE; -TROPICAMIDE 1% OPHTH SOLN 15ML OD SCH
[2023-06-17] MEDS: NS 1,000 ML IV ONE (07:13)
[2023-06-17 08:15] VITALS: BP 109/59; O2SAT 97
== END 2023-06-17 08:29 | disposition home or self-care (01) ==
LOC: M OPP 06:48
PROVIDERS: ATTEND Surgery
DX: Z12.11 Encounter for screening for malignant neoplasm of colon (principal); Z86.010 Personal history of colon polyps; K57.30 Diverticulosis of large intestine without perforation or abscess without bleeding; E11.9 Type 2 diabetes mellitus without complications; E03.9 Hypothyroidism, unspecified; Z79.02 Long term (current) use of antithrombotics/antiplatelets; Z79.890 Hormone replacement therapy; Z79.899 Other long term (current) drug therapy; Z91.041 Radiographic dye allergy status

== ENCOUNTER → 2023-11-30 | Outpatient (REF) | payer OTHER | LOC: M SFHCWOUN 18:07 | PROVIDERS: ATTEND Surgery | DX: L97.514 Non-pressure chronic ulcer of other part of right foot with necrosis of bone (principal) ==

== ENCOUNTER → 2024-01-12 | Outpatient (REF) | payer OTHER | LOC: M LAB REF 16:35 | PROVIDERS: ATTEND Podiatrist Foot & Ankle Surgery | DX: L03.115 Cellulitis of right lower limb (principal); Z89.421 Acquired absence of other right toe(s) ==